=== PATIENT | female | born 1950 | race Caucasian/White ===

== ENCOUNTER 2017-10-16 18:31 | Emergency (ER) | payer MEDICARE ==
[~2017-10-16] VITALS: Ht 160 cm; Wt 72.6 kg
[2017-10-16] MEDS ORDERED: ZANTAC 150MG T150 MG PO (18:46)
[2017-10-16] MEDS ORDERED: NORCO 5-325 TA1 EACH PO (20:01)
[2017-10-16 20:09] VITALS: BP 169/73
== END 2017-10-16 20:22 | disposition home or self-care (01) ==
LOC: M.ERS 18:31
DX: M25.562 Pain in left knee (principal); M25.552 Pain in left hip; R03.0 Elevated blood-pressure reading, without diagnosis of hypertension; Z90.710 Acquired absence of both cervix and uterus